=== PATIENT | male | born 1965 | race Caucasian/White ===

== ENCOUNTER 2016-12-16 14:01 | Outpatient (CLI) | payer OTHER | END 2016-12-16 14:02 | disposition home or self-care (01) | DX: R31.21 Asymptomatic microscopic hematuria (principal) ==

== ENCOUNTER 2016-12-20 09:14 | Outpatient (CLI) | payer OTHER ==
[2016-12-20] MEDS ORDERED: IOPAMIDOL-300 100 ML VIAL IVP ONE (10:43)
== END 2016-12-20 09:15 | disposition home or self-care (01) ==
DX: R31.9 Hematuria, unspecified (principal)
CPT/HCPCS: 74178; Q9967

== ENCOUNTER 2017-03-15 15:43 | Outpatient (CLI) | payer OTHER | END 2017-03-15 15:44 | disposition home or self-care (01) | DX: M51.36 Other intervertebral disc degeneration, lumbar region (principal); M16.0 Bilateral primary osteoarthritis of hip; M11.252 Other chondrocalcinosis, left hip; M11.251 Other chondrocalcinosis, right hip ==

== ENCOUNTER 2017-10-02 07:14 | Outpatient (CLI) | payer OTHER ==
[2017-10-03 15:20] VITALS: BP 116/82
--- NOTE | 2017-10-03 16:41 | CARDIAC PROCEDURE NOTE ---
DATE OF SERVICE: 10/02/2017 00:00:00 PROCEDURE: Tucker protocol treadmill for echocardiographic left ventricular imaging. INDICATIONS: A 52-year-old male with a recent work-related evaluation and concerns generated from eusebio t regarding cardiovascular health. Dramatic history of dyspnea on exertion. PROCEDURE: The patient was exercised in the standard fashion on the Tucker protocol for just over 10 m inutes, and he did achieve his 85% maximum predicted heart rate. The procedure was terminated because of breathlessness. There were no diagnostic EKG changes. He did have some isolated ventricular and s upraventricular premature beats during recovery, but no complex ectopy was noted. He had profound dys pnea and had to sit up once briefly during the echocardiographic imaging. He had a fairly slow heart rate recovery, with the heart rate still over 100 at about 7 minutes. IMPRESSION: Tucker protocol treadmill negative for ischemia by EKG findings. See echocardiograph and i nterpretation for details. JOB #: [id number] EXT JOB #:[id number]
== END 2017-10-02 07:15 | disposition home or self-care (01) ==
LOC: DI 07:14
PROVIDERS: ATTEND Physician Assistant Medical
DX: R94.39 Abnormal result of other cardiovascular function study (principal); E78.2 Mixed hyperlipidemia
CPT/HCPCS: 93350

== ENCOUNTER 2017-11-01 11:16 | Outpatient (CLI) | payer OTHER ==
[2017-11-01 11:35] LABS: BASOPHILS # (AUTO) 0.1 10^3/uL (0.0-0.1); BASOPHILS % (AUTO) 0.6 %; EOSINOPHILS # (AUTO) 0.1 10^3/uL (0.0-0.7); EOSINOPHILS % (AUTO) 0.8 %; HCT - HEMATOCRIT 45.9 % (42.0-52.0); HGB - HEMOGLOBIN 15.7 g/dL (14.0-18.0); LYMPHOCYTES # (AUTO) 1.1 10^3/uL (1.5-3.5); LYMPHOCYTES % (AUTO) 11.6 %; MEAN CORPUSCULAR HEMOGLOBIN 28.5 pg (27.0-31.0); MEAN CORPUSCULAR HGB CONC 34.1 g/dL (32.0-36.0); MEAN CORPUSCULAR VOLUME 83.6 fL (80.0-94.0); MEAN PLATELET VOLUME 8.3 fL (7.4-11.4); MONOCYTES # (AUTO) 1.2 10^3/uL (0.0-1.0); NEUTROPHILS # (AUTO) 6.9 10^3/uL (1.5-6.6); RED CELL DISTRIBUTION WIDTH 13.5 % (12.0-15.0); UNCORRECTED WHITE BLOOD COUNT 9.3 x10^3/uL; WHITE BLOOD COUNT 9.3 x10^3/uL (4.8-10.8)
[2017-11-01 11:54] LABS: ALBUMIN/GLOBULIN RATIO 1.4 (1.0-2.2); BILIRUBIN,TOTAL 0.8 mg/dL (0.2-1.0); BUN - BLOOD UREA NITROGEN 22 mg/dL (6-20); CALCIUM 9.3 mg/dL (8.5-10.3); CARBON DIOXIDE - CO2 28 mmol/L (21-32); CHLORIDE 99 mmol/L (101-111); CREATININE 1.4 mg/dL (0.6-1.2); GFR - MDRD 53 (>89); GLUCOSE 128 mg/dL (70-100); POTASSIUM 4.2 mmol/L (3.5-5.0); SODIUM 138 mmol/L (135-145); TOTAL PROTEIN 7.3 g/dL (6.7-8.2)
== END 2017-11-01 11:17 | disposition home or self-care (01) ==
LOC: LAB 11:16
PROVIDERS: ATTEND Physician Assistant Medical
DX: R10.11 Right upper quadrant pain (principal)
CPT/HCPCS: 36415; 80053; 85025; 85651; 86140

== ENCOUNTER 2017-11-11 13:01 | Outpatient (CLI) | payer OTHER ==
--- NOTE | 2017-11-16 15:52 | Ultrasound Report ---
EXAM: ABDOMEN ULTRASOUND LIMITED, RUQ EXAM DATE: 11/11/2017 02:52 PM. CLINICAL HISTORY: ABDOMINAL PAIN, RUQ. COMPARISON: None. TECHNIQUE: Real-time scanning was performed with static images obtained. FINDINGS: Liver: Mildly echogenic liver parenchyma with probable hemangioma in right lobe measuring 1.1 x 1.2 x 1.1 cm. No suspicious findings. Overall size normal, 15.0 cm. Main portal vein flow: Hepatopetal. Gallbladder: Normal. No stones, wall thickening, or sonographic Ruiz's sign. Biliary System: CBD measures 3.0 mm. No intrahepatic or extrahepatic ductal dilatation. Other: Unremarkable visualized portions of pancreas and right kidney. IMPRESSION: Mild fatty liver with small hemangioma. [facility] Referring Provider Line: [phone] SITE ID: [id number]
== END 2017-11-11 13:02 | disposition home or self-care (01) ==
LOC: DI 13:01
PROVIDERS: ATTEND Physician Assistant Medical
DX: K76.0 Fatty (change of) liver, not elsewhere classified (principal); D18.09 Hemangioma of other sites
CPT/HCPCS: 76705

== ENCOUNTER 2018-04-16 14:31 | Outpatient (CLI) | payer OTHER ==
[2018-04-16 14:51] LABS: BASOPHILS % (AUTO) 0.8 %; EOSINOPHILS # (AUTO) 0.1 10^3/uL (0.0-0.7); EOSINOPHILS % (AUTO) 1.2 %; HGB - HEMOGLOBIN 14.6 g/dL (14.0-18.0); LYMPHOCYTES # (AUTO) 1.2 10^3/uL (1.5-3.5); LYMPHOCYTES % (AUTO) 23.4 %; MEAN CORPUSCULAR HEMOGLOBIN 28.5 pg (27.0-31.0); MEAN CORPUSCULAR HGB CONC 33.7 g/dL (32.0-36.0); MEAN CORPUSCULAR VOLUME 84.6 fL (80.0-94.0); MEAN PLATELET VOLUME 8.3 fL (7.4-11.4); MONOCYTES # (AUTO) 0.5 10^3/uL (0.0-1.0); MONOCYTES % (AUTO) 10.4 %; NEUTROPHILS # (AUTO) 3.3 10^3/uL (1.5-6.6); NEUTROPHILS % (AUTO) 64.2 %; PLT - PLATELET COUNT 187 10^3/uL (130-450); RED BLOOD COUNT 5.14 10^6/uL (4.70-6.10); RED CELL DISTRIBUTION WIDTH 14.2 % (12.0-15.0); WHITE BLOOD COUNT 5.1 x10^3/uL (4.8-10.8)
[2018-04-16 15:06] LABS: ALBUMIN 4.2 g/dL (3.2-5.5); ALBUMIN/GLOBULIN RATIO 1.7 (1.0-2.2); BILIRUBIN,TOTAL 0.6 mg/dL (0.2-1.0); CALCIUM 8.8 mg/dL (8.5-10.3); CREATININE 1.5 mg/dL (0.6-1.2); TOTAL PROTEIN 6.7 g/dL (6.7-8.2)
--- NOTE | 2018-04-16 18:31 | XRAY Report ---
CHEST TWO VIEWS: 04/16/2018 HISTORY: Short of breath. COMPARISON: 12/02/2009 FINDINGS: The heart size is normal. The lungs are clear. There is no pleural fluid or pneumothorax. Unremarkable bony structures. IMPRESSION: NEGATIVE TWO VIEW CHEST X-RAY, UNCHANGED SINCE 12/02/2009. TD: 04/16/2018 16:10
== END 2018-04-16 14:32 | disposition home or self-care (01) ==
LOC: DI 14:31
PROVIDERS: ATTEND Physician Assistant Medical
DX: R06.09 Other forms of dyspnea (principal); N28.9 Disorder of kidney and ureter, unspecified
CPT/HCPCS: 36415; 71046; 80053; 84443; 85025; 85379

== ENCOUNTER 2018-05-14 16:48 | Outpatient (CLI) | payer BC, OTHER ==
--- NOTE | 2018-05-15 08:14 | XRAY Report ---
Procedure Date: 05/14/2018 Accession Number: [id number] / [id number] Procedure: XR - Lumbar Spine Complete CPT Code: FULL RESULT: EXAM: Lumbar Spine Complete DATE: 05/14/2018 5:11 PM CLINICAL HISTORY: BACK PX, LUMBAR COMPARISON: 03/15/2017 TECHNIQUE: 5 views. FINDINGS: Alignment: Normal. No spondylolisthesis or scoliosis. Bones: Five [id number] lumbar vertebral bodies are present. No fractures or bone lesions. Disks: Stable mild degenerative disc disease. Facets: Mild facet arthropathy. Sacroiliac Joints: Unremarkable. Soft Tissues: Normal. The visualized bowel gas pattern is normal. IMPRESSION: Stable mild degenerative changes. No evidence of interval fracture. [facility]
== END 2018-05-14 16:49 | disposition home or self-care (01) ==
LOC: DI 16:48
PROVIDERS: ATTEND Physician Assistant Medical
DX: M51.36 Other intervertebral disc degeneration, lumbar region (principal); M47.896 Other spondylosis, lumbar region
CPT/HCPCS: 72110

== ENCOUNTER 2018-05-28 22:03 | Outpatient (CLI) | payer BC, OTHER ==
--- NOTE | 2018-05-29 10:58 | Ultrasound Report ---
Procedure Date: 05/28/2018 Accession Number: [id number] / [id number] Procedure: US - Retroperitoneal CPT Code: FULL RESULT: EXAM: Retroperitoneal DATE: 05/28/2018 11:21 PM CLINICAL HISTORY: RENAL INSUFFICIENCY, CHRONIC COMPARISON: Right upper quadrant ultrasound 03/06/2008. TECHNIQUE: Real-time scanning was performed with static images obtained. FINDINGS: Right Kidney: 10.2 cm. (Previously 11.3 cm) Normal echotexture with no stones, contour-deforming masses, or hydronephrosis. Left Kidney: 11.8 cm. (Previously 12.7 cm) Normal echotexture with no stones, contour-deforming masses, or hydronephrosis.] Bladder: Bilateral jets seen. The prevoid bladder volume was 685 cc. The postvoid bladder volume was 179 cc. IMPRESSION: Normal renal ultrasound. [facility]
== END 2018-05-28 22:04 | disposition home or self-care (01) ==
LOC: DI 22:03
PROVIDERS: ATTEND Physician Assistant Medical
DX: N18.9 Chronic kidney disease, unspecified (principal)
CPT/HCPCS: 76770

== ENCOUNTER 2018-09-11 08:27 | Outpatient (CLI) | payer OTHER ==
[2018-09-11 09:08] LABS: CREATININE,URINE 131.2 mg/dL
[2018-09-11 09:12] LABS: TOTAL PROTEIN,URINE TIMED < 6 mg/dL
== END 2018-09-11 08:28 | disposition home or self-care (01) ==
LOC: LAB 08:27
PROVIDERS: ATTEND Internal Medicine Nephrology
DX: R80.9 Proteinuria, unspecified (principal)
CPT/HCPCS: 82570; 84156

== ENCOUNTER 2020-04-14 07:31 | Outpatient (CLI) | payer OTHER | END 2020-04-14 07:32 | disposition home or self-care (01) | LOC: LAB 07:31 | PROVIDERS: ATTEND Allergy & Immunology | DX: T63.451D Toxic effect of venom of hornets, accidental (unintentional), subsequent encounter (principal); T63.461D Toxic effect of venom of wasps, accidental (unintentional), subsequent encounter | CPT/HCPCS: 36415; 81599; 83520 ==

== ENCOUNTER 2023-09-07 12:06 | Outpatient (CLI) | payer OTHER ==
[2023-09-07] MEDS ORDERED: BARIUM SULFATE 450 ML BOTTLE PO ONE (14:00)
[2023-09-07] MEDS ORDERED: iohexoL-300 100 ML VIAL IVP ONE (14:00)
--- NOTE | 2023-09-07 14:54 | CT Report ---
PROCEDURE: ABDOMEN/PELVIS W INDICATIONS: LIVER LESION CONTRAST: 100ml omni 300 TECHNIQUE: After the administration of oral and intravenous contrast, 5 mm thick sections acquired from the diap hragms to the symphysis. 5 mm thick coronal and sagittal reformats were acquired. For radiation dos e reduction, the following was used: automated exposure control, adjustment of mA and/or kV accordin g to patient size. COMPARISON: Ultrasound in 2018, 11/11/2017 FINDINGS: Image quality: Excellent. Lung bases and heart: Unremarkable. Liver: 1.1 cm hypoattenuating lesion in segment 7 of the liver (series 2, image 33). Additional subce ntimeter hypoattenuating lesion in segment 3, too small to catheterize but probably a small cyst. Gallbladder and biliary tree: No radiopaque stones or wall thickening. No biliary dilation. Spleen: No splenomegaly. Pancreas: No pancreatic ductal dilation. Adrenals: No adrenal nodule. Kidneys and ureters: No hydronephrosis. No renal cystic lesion which requires follow up. No solid mas s. Bowel and peritoneum: No bowel distension. No pathologic free fluid. Diverticulosis without evidence of diverticulitis. Lymph nodes: No central or retroperitoneal adenopathy. Vessels: No infrarenal aortic aneurysm. PELVIS Reproductive organs: Unremarkable. Bladder: No abnormal wall thickening, accounting for underdistension. Surgical tray at the base of the bladder. Pelvic lymph nodes: No pelvic adenopathy by size criteria. Bones: No aggressive osseous abnormality. Other: No significant ventral or inguinal hernia. IMPRESSION: Similar 1.1 cm lesion in segment 6 of the liver. Based on the sonographic evaluation of 11/11/2017 an d today's examination, findings are favored to represent a benign hemangioma (in the absence of liver disease or known metastatic disease). Colonic diverticulosis without evidence of diverticulitis. Reviewed by: Reno Reveles on 09/07/2023 2:52 PM PDT Approved by: Reno Reveles on 09/07/2023 2:52 PM PDT Station ID: [id number]
--- NOTE | 2023-09-07 14:56 | CT Report ---
PROCEDURE: CHEST W INDICATIONS: LIVER LESION CONTRAST: 100ml omni 300 TECHNIQUE: After the administration of intravenous contrast, 1 mm axial images were acquired from the pulmonary apices through the posterior costophrenic angles. Axial 5 mm soft tissue kernel reconstructions were performed as well as 8 mm axial MIP and coronal and sagittal 5 mm reformations. For radiation dose reduction, the following was used: automated exposure control, adjustment of mA and/or kV according to patient size. COMPARISON: Same day CT, ultrasound 11/11/2017. FINDINGS: Image quality: Excellent. Lungs and pleura: No consolidation. No pleural effusions. No pneumothorax. No suspicious pulmonary n odules which require follow up. Mediastinum: Heart size is normal. No pericardial effusion. No large vessel abnormality. No mediastin al adenopathy by size criteria. Three-vessel coronary calcifications. Chest wall and lower neck: Thyroid is unremarkable. No axillary or supraclavicular adenopathy by size . Bones: No aggressive osseous abnormality. Upper Abdomen: Please see same day abdominal CT. IMPRESSION: Marked coronary artery calcifications for age. Consider cardiology referral. Reviewed by: Reno Reveles on 09/07/2023 2:54 PM PDT Approved by: Reno Reveles on 09/07/2023 2:54 PM PDT Station ID: [id number]
== END 2023-09-07 12:07 | disposition home or self-care (01) ==
LOC: DI 12:06
PROVIDERS: ATTEND Surgery
DX: K76.89 Other specified diseases of liver (principal); I25.10 Atherosclerotic heart disease of native coronary artery without angina pectoris

== ENCOUNTER 2023-12-07 08:00 | Outpatient (CLI) | payer OTHER ==
[2023-12-07 18:22] LABS: ALBUMIN 4.2 g/dL (3.2-5.5); ALBUMIN/GLOBULIN RATIO 1.5 (1.0-2.2); BILIRUBIN,TOTAL 0.7 mg/dL (0.2-1.0); CALCIUM 9.1 mg/dL (8.5-10.3); CREATININE 1.3 mg/dL (0.6-1.3); POTASSIUM 4.2 mmol/L (3.5-4.5); URIC ACID 7.5 mg/dL (4.4-7.6)
[2023-12-07 18:29] LABS: BASOPHILS # (AUTO) 0.1 10^3/uL (0.0-0.1); BASOPHILS % (AUTO) 0.7 %; EOSINOPHILS % (AUTO) 0.5 %; HCT - HEMATOCRIT 46.6 % (42.0-52.0); HGB - HEMOGLOBIN 15.1 g/dL (14.0-18.0); LYMPHOCYTES # (AUTO) 1.1 10^3/uL (1.5-3.5); MEAN CORPUSCULAR HEMOGLOBIN 27.8 pg (27.0-31.0); MEAN CORPUSCULAR HGB CONC 32.4 g/dL (32.0-36.0); MEAN CORPUSCULAR VOLUME 85.7 fL (80.0-94.0); MEAN PLATELET VOLUME 11.4 fL (7.4-11.4); MONOCYTES # (AUTO) 0.7 10^3/uL (0.0-1.0); NEUTROPHILS # (AUTO) 6.6 10^3/uL (1.5-6.6); NEUTROPHILS % (AUTO) 77.7 %; PLT - PLATELET COUNT 197 10^3/uL (130-450); RED BLOOD COUNT 5.44 10^6/uL (4.70-6.10); RED CELL DISTRIBUTION WIDTH 13.6 % (12.0-15.0); WHITE BLOOD COUNT 8.5 x10^3/uL (4.8-10.8)
== END 2023-12-07 23:59 | disposition home or self-care (01) ==
LOC: LAB.N 08:00
PROVIDERS: ATTEND Physician Assistant Medical
DX: M79.89 Other specified soft tissue disorders (principal)
CPT/HCPCS: 36415; 80053; 84550; 85025; 85651